=== PATIENT | male | born 1995 | race Two or more races ===

== ENCOUNTER 2022-11-10 03:04 | Emergency (ER) | payer MEDICAID, OTHER ==
[~2022-11-10] VITALS: Ht 170.2 cm; Wt 65.8 kg
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
--- NOTE | 2022-11-10 03:43 | NUR ---
EKG DONE AT BEDSIDE
[2022-11-10] MEDS ORDERED: IBUPROFEN 600 MG TABLET ONE (03:45)
[2022-11-10] MEDS ORDERED: IBUPROFEN 600 MG TABLET PO ONE (04:00)
--- NOTE | 2022-11-10 04:18 | NUR ---
22GA TO RIGHT HAND ESTABLISHED
--- NOTE | 2022-11-10 04:20 | NUR ---
BLOOD WORK COLLECTED, SENT TO LAB
--- NOTE | 2022-11-10 04:30 | NUR ---
PT TAKEN TO CT W/ TECH
[2022-11-10 04:50] LABS: BASOPHILS # (AUTO) 0.1 K/uL (0.0-0.2); BASOPHILS % (AUTO) 0.3 % (0.0-2.0); EOSINOPHILS % (AUTO) 4.9 % (0.0-6.0); HEMATOCRIT 46 % (39-51); HEMOGLOBIN 14.8 g/dL (13.5-17.5); LYMPHOCYTES # (AUTO) 3.2 K/uL (0.8-4.8); LYMPHOCYTES % (AUTO) 17.4 % (20.0-44.0); MEAN CORPUSCULAR HGB CONC 32 g/dl (31.0-36.0); MEAN CORPUSCULAR VOLUME 88 fL (80-96); MONOCYTES % (AUTO) 5.2 % (2.0-12.0); NEUTROPHILS # (AUTO) 13.3 K/uL (1.8-8.9); NEUTROPHILS % (AUTO) 72.2 % (43.0-81.0); PLATELET COUNT (AUTO) 269 K/uL (150-450); RED BLOOD CELL COUNT(AUTO) 5.28 MIL/uL (4.5-6.0); WHITE BLOOD COUNT (AUTO) 18.5 K/uL (4.3-11.0)
--- NOTE | 2022-11-10 04:50 | NUR ---
PT BACK FROM CT
[2022-11-10 05:04] LABS: CALCIUM, SERUM 9.4 mg/dL (8.5-10.1); CARBON DIOXIDE 28 mmol/L (21-32); CHLORIDE 102 mmol/L (98-107); CREATININE 0.9 mg/dL (0.6-1.3); GLUCOSE 172 mg/dL (74-106); SODIUM SERUM 139 mmol/L (136-145); UREA NITROGEN, BLOOD 11 mg/dL (7-18)
[2022-11-10 05:10] LABS: ALCOHOL, BLOOD < 3 mg/dL (0-10)
--- NOTE | 2022-11-10 06:00 | NUR ---
PT STILL UNABLE TO PROVIDE URINE FOR URINE COLLECTION. AWARE.
--- NOTE | 2022-11-10 06:05 | NUR ---
ORTHO NURSE EXAMINER PAGED
--- NOTE | 2022-11-10 06:05 | NUR ---
EMT AT BEDSIDE FOR SPLINTING
[2022-11-10] MEDS ORDERED: IBUP-1955 PO (07:12)
[2022-11-10] MEDS ORDERED: NALO4SPR BNOSTRILS (07:55)
--- NOTE | 2022-11-10 09:00 | NUR ---
pt to ct via adin, gave ice chips per dr Parisi
[2022-11-10] MEDS ORDERED: IOHEXOL-350 100 ML VIAL IV ONE (09:13)
[2022-11-10] MEDS ORDERED: CT SWABBABLE VALVE TRANS SET 1 EA INFUS.SET MC ONE (09:13)
[2022-11-10] MEDS ORDERED: IV NS 0.9% 250 ML IV ONE (09:13)
--- NOTE | 2022-11-10 09:35 | NUR ---
back from ct via adin
--- NOTE | 2022-11-10 10:57 | NUR ---
IV removed. Catheter intact and site benign. Pressure and 4x4 applied to site. No bleeding noted.
--- NOTE | 2022-11-10 10:57 | NUR ---
Patient discharged to home in stable condition. Written and verbal after care instructions given. Patient verbalizes understanding of instruction.
[2022-11-10 10:59] VITALS: BP 130/82
== END 2022-11-10 11:00 | disposition home or self-care (01) ==
LOC: ER 03:06
DX: S42.302A Unspecified fracture of shaft of humerus, left arm, initial encounter for closed fracture (principal); R55 Syncope and collapse; T40.601A Poisoning by unspecified narcotics, accidental (unintentional), initial encounter; J45.909 Unspecified asthma, uncomplicated; V89.2XXA Person injured in unspecified motor-vehicle accident, traffic, initial encounter; Y93.89 Activity, other specified; Y92.89 Other specified places as the place of occurrence of the external cause; Y99.8 Other external cause status
CPT/HCPCS: 29105; 99285; 93005; 73060; 70450; 73206; 85025; 80048; 36415; 84484; 80320; J7050; Q9967; G0480